=== PATIENT | female | born 1945 | race Caucasian/White ===

== ENCOUNTER → 2017-01-29 | Outpatient (CLI) | payer MEDICARE, OTHER ==
[2017-01-29 16:54] LABS: BASO # 0.1 K/mm3 (0.0-0.2); BASO % 0.9 % (0.0-1.0); EOS # 0.2 K/mm3 (0.0-0.50); EOS % 2.6 % (0.0-3.0); LARGE UNSTAINED CELL # 0.2 K/mm3 (0.0-0.4); LARGE UNSTAINED CELL % 2.2 % (0.0-4.0); LYMPH # 3.2 K/mm3 (1.5-4.5); LYMPH % 40.9 % (24.0-44.0); MEAN CORPUSCULAR HEMOGLOBIN 31.3 pg (27.0-33.0); MEAN CORPUSCULAR HGB CONC 33.5 g/dl (32.0-36.5); MEAN CORPUSCULAR VOLUME 93.4 fl (80.0-96.0); MONO # 0.4 K/mm3 (0.0-0.8); MONO % 5.2 % (0.0-5.0); NEUTROPHILS # 3.6 K/mm3 (1.8-7.7); NEUTROPHILS % 48.2 % (36.0-66.0); PLATELET COUNT, AUTOMATED 242 k/mm3 (150-450); RED CELL DISTRIBUTION WIDTH 12.4 % (11.5-14.5); WHITE BLOOD COUNT 7.4 K/mm3 (4.0-10.0)
[2017-01-29 17:58] LABS: ALBUMIN/GLOBULIN RATIO 1.38 (1.00-1.93); ALKALINE PHOSPHATASE 79 U/L (45-117); ALT/SGPT < 6 U/L (12-78); ANION GAP 8 MEQ/L (8-16); AST/SGOT 15 U/L (15-37); BILIRUBIN,TOTAL 0.6 MG/DL (0.2-1.0); BLOOD UREA NITROGEN 19 MG/DL (7-18); CALCIUM LEVEL 8.8 MG/DL (8.8-10.2); CARBON DIOXIDE LEVEL 31 MEQ/L (21-32); CHLORIDE LEVEL 103 MEQ/L (98-107); CHOLESTEROL LEVEL 206 MG/DL (<200); CREATININE FOR GFR 0.99 MG/DL (0.55-1.02); GLOMERULAR FILTRATION RATE 58.9 (>39); GLUCOSE, FASTING 84 MG/DL (83-110); POTASSIUM SERUM 4.1 MEQ/L (3.5-5.1); SODIUM LEVEL 142 MEQ/L (136-145); TOTAL PROTEIN 6.9 GM/DL (6.4-8.2); TRIGLYCERIDES LEVEL 100 MG/DL (<150)
== END ==
LOC: M WUC 14:29
PROVIDERS: ATTEND Nurse Practitioner Family
DX: E78.5 Hyperlipidemia, unspecified (principal); E55.9 Vitamin D deficiency, unspecified

== ENCOUNTER → 2020-10-29 | Outpatient (CLI) | payer SELFPAY | LOC: M LABSMTC 15:17 | PROVIDERS: ATTEND Pediatrics | DX: Z20.828 Contact with and (suspected) exposure to other viral communicable diseases (principal) ==

== ENCOUNTER → 2023-10-28 | Outpatient (CLI) | payer MEDICARE, OTHER | LOC: M RAD 12:43 | PROVIDERS: ATTEND Internal Medicine | DX: R42 Dizziness and giddiness (principal); I65.23 Occlusion and stenosis of bilateral carotid arteries ==

== ENCOUNTER → 2024-02-04 | Outpatient (REF) | payer MEDICARE, OTHER ==
[2024-02-04 17:06] LABS: PERCENT SATURATION 25.5 % (13.2-45.0)
[2024-02-04 17:07] LABS: FERRITIN 58.2 NG/ML (7.3-270.7)
== END ==
LOC: M LAB REF 16:30
PROVIDERS: ATTEND Internal Medicine
DX: D64.9 Anemia, unspecified (principal)

== ENCOUNTER → 2024-09-27 | Outpatient (REF) | payer MEDICARE, OTHER | LOC: M SFHCDERM 17:39 | PROVIDERS: ATTEND Nurse Practitioner Family | DX: C44.41 Basal cell carcinoma of skin of scalp and neck (principal) ==

== ENCOUNTER → 2024-09-29 | Outpatient (REF) | payer MEDICARE, OTHER ==
[2024-09-29 14:36] LABS: PERCENT SATURATION 37.6 % (13.2-45.0)
[2024-09-29 14:39] LABS: FERRITIN 81.3 NG/ML (7.3-270.7)
== END ==
LOC: M LAB REF 13:16
PROVIDERS: ATTEND Internal Medicine
DX: D64.9 Anemia, unspecified (principal)

== ENCOUNTER 2025-06-21 07:17 | Day surgery (SDC) | payer MEDICARE, OTHER ==
[~2025-06-21] VITALS: Ht 162.6 cm; Wt 63.6 kg
[~2025-06-21 07:17] MED LIST: ACET-897 PO; ALEV220T22 PO; ATOR1TAB19 PO; BUPR-766 PO; CETI10CH PO; D3 H10002 PO; LEXA1TAB2 PO; LOSA25TA13 PO; OMEP-173 PO
[2025-06-21] MEDS ORDERED: LIDOCAINE 2% 100 MG/5 ML SDV (FOR ANES.) As Ordered ONE (07:54)
[2025-06-21 08:15] VITALS: TEMP 97.5
[2025-06-21 08:39] VITALS: BP 136/63; O2SAT 97
== END 2025-06-21 08:45 | disposition home or self-care (01) ==
LOC: M OPP 07:17
PROVIDERS: ATTEND Surgery
DX: Z12.11 Encounter for screening for malignant neoplasm of colon (principal); R19.5 Other fecal abnormalities; D12.2 Benign neoplasm of ascending colon; Z79.899 Other long term (current) drug therapy